=== PATIENT | male | born 2000 | race Caucasian/White ===

== ENCOUNTER 2022-02-04 12:25 | Emergency (ER) | payer OTHER ==
[~2022-02-04] VITALS: Ht 177.8 cm; Wt 77.1 kg
[2022-02-04 12:35] VITALS: BP 123/74
[2022-02-04] MEDS ORDERED: ALBUTEROL SULFATE/IPRATROPIU 3 ML SOL IH ONE (13:15)
[2022-02-04] MEDS ORDERED: PROM118S5 PO (14:14)
[2022-02-04] MEDS ORDERED: ALBU0.0912 IH (14:14)
[2022-02-04] MEDS ORDERED: PRED20TA5 PO (14:14)
[2022-02-04 14:38] VITALS: BP 123/70
--- NOTE | 2022-02-04 14:38 | NUR ---
Patient discharged with v/s stable. Written and verbal after care instructions given. Patient alert, oriented and verbalized understanding of instructions. Ambulatory with steady gait. All questions addressed prior to discharge. ID band removed. Patient advised to follow up with PMD. Rx of Albuterol Sulfate, Prednisone and Promethazine-DM given. Opportunity to ask questions provided and answered.
--- NOTE | 2022-02-04 14:46 | NUR ---
The patient's care was reviewed and supervised by ED Agency Nurse 8, RN, RN.
== END 2022-02-04 12:36 | disposition home or self-care (01) ==
LOC: MED 12:25
DX: J20.9 Acute bronchitis, unspecified (principal); R03.0 Elevated blood-pressure reading, without diagnosis of hypertension; Z79.899 Other long term (current) drug therapy
CPT/HCPCS: 71045; 94640; 99283